=== PATIENT | female | born 1990 | race Caucasian/White ===

== ENCOUNTER 2018-04-09 13:24 | Outpatient (CLI) | payer OTHER, MEDICAID, SELFPAY | END 2018-04-09 14:05 | disposition home or self-care (01) | LOC: OB 04-10 17:01 | PROVIDERS: PCP Physician Assistant Medical | DX: Z34.83 Encounter for supervision of other normal pregnancy, third trimester (principal); Z3A.30 30 weeks gestation of pregnancy; M54.9 Dorsalgia, unspecified | CPT/HCPCS: 59025; G0378; G0379 ==

== ENCOUNTER → 2018-05-04 15:32 | Outpatient (CLI) | payer OTHER, MEDICAID, SELFPAY ==
[2018-05-05 15:11] LABS: Strep Grp B PCR NEG for Grp B Strep
== END ==
PROVIDERS: PCP Physician Assistant Medical
DX: Z34.83 Encounter for supervision of other normal pregnancy, third trimester (principal); Z3A.35 35 weeks gestation of pregnancy
CPT/HCPCS: 87653

== ENCOUNTER 2018-05-24 16:01 | Outpatient (CLI) | payer OTHER, MEDICAID, SELFPAY | END 2018-05-24 17:28 | disposition home or self-care (01) | LOC: OB 10-01 15:21 | PROVIDERS: PCP Physician Assistant Medical; Visit Provider Obstetrics & Gynecology | DX: Z03.71 Encounter for suspected problem with amniotic cavity and membrane ruled out (principal); Z3A.37 37 weeks gestation of pregnancy | CPT/HCPCS: 59025; 84112; G0378; G0379 ==

== ENCOUNTER 2018-05-26 12:25 | Outpatient (CLI) | payer OTHER, MEDICAID, SELFPAY | END 2018-05-26 19:00 | disposition home or self-care (01) | LOC: LABOR 12:34 → OB 05-29 07:36 | PROVIDERS: PCP Physician Assistant Medical; Visit Provider Obstetrics & Gynecology | DX: Z34.83 Encounter for supervision of other normal pregnancy, third trimester (principal); Z3A.37 37 weeks gestation of pregnancy | CPT/HCPCS: 59025; G0378; G0379 ==

== ENCOUNTER 2018-05-26 19:13 | Outpatient (CLI) | payer OTHER, MEDICAID, SELFPAY | END 2018-05-26 19:40 | disposition home or self-care (01) | LOC: LABOR 05-27 08:22 → OB 10-01 15:21 | PROVIDERS: PCP Physician Assistant Medical; Visit Provider Obstetrics & Gynecology | DX: Z34.83 Encounter for supervision of other normal pregnancy, third trimester (principal); Z3A.37 37 weeks gestation of pregnancy | CPT/HCPCS: 59025; G0378; G0379 ==

== ENCOUNTER 2018-06-07 06:59 | Inpatient (IN) | payer OTHER, MEDICAID, SELFPAY ==
[2018-06-07] MEDS: LACTATED RINGERS 1,000 ML 125 ML IV ×2 (07:45→13:44)
[2018-06-07 08:04] LABS: Add Manual Diff / Slide Review NO; Basophils Percent Auto 0.6 % (0-2); Eosinophils Percent Auto 0.7 % (2-4); Hematocrit 32.8 % (36-46); Hemoglobin 11.3 g/dL (12.0-16.0); Lymphocytes Percent Auto 16.8 % (25-40); Mean Corpuscular HGB Conc 34.6 % (30-36); Mean Corpuscular Hemoglobin 28.5 PG (26-34); Mean Corpuscular Volume 82.6 fL (80-100); Monocytes Percent Auto 6.2 % (3-14); Neutrophils Absolute Auto 7400 /uL (3000-5900); Neutrophils Percent Auto 75.7 % (50-75); Platelet Count 192 X10^3/uL (150-400); Red Blood Cell Count 3.97 X10^6/uL (4.0-5.2); Red Cell Distribution Width 13.8 % (11.6-14.8); White Blood Cell Count 9.8 X10^3/uL (4.5-11.0)
[2018-06-07] MEDS: OXYTOCIN PREMIX 30 UNIT/500 ML PLAST..BAG IV (08:05)
[2018-06-07 12:00] VITALS: BP 120/55
[2018-06-07] MEDS: KETOROLAC 30 MG/ML VIAL IV (17:39)
[2018-06-08] MEDS: KETOROLAC 30 MG/ML VIAL IV ×2 (00:01→06:55)
[2018-06-08] MEDS: OXYCODONE/ACETAMINOPHEN 5/325 TABLET 2 TAB PO ×2 (03:11→12:39)
[2018-06-08] MEDS: DOCUSATE 250 MG CAPSULE PO (09:24)
[2018-06-08] MEDS: LANOLIN OINT 7 GM 1 APPLIC TOP (11:41)
[2018-06-08 11:54] VITALS: BP 110/75; PULSE 68; RESP 16; TEMP 36.4
--- NOTE | 2018-08-03 12:27 | PM.OBPRVD ---
Delivery date: 06/[birth year] Intrapartal events: None Induction method: per pitocin protocol Delivery augmentation: rupture of membranes Delivery monitor: external FHT and external uterine Route of delivery: Episiotomy description: None Laceration description: None Estimated blood loss (mL): 400 Anesthesia type: None Complications: None Narrative: The patient was complete and pushed for 11 min. At 4:40 p.m., a live female infant delivered spontaneously over an intact perineum. The remainder of the body delivered without difficulty and was placed on mom's abdomen. The cord was double clamped and cut. Cord bloods were obtained. The placenta delivered intact with a 3 vessel cord at 4:45 p.m.. Pitocin was given in the IV fluids. The fundus was massaged to firm. No lacerations were observed. Apgars 8 at 1 min and 9 at 5 min. Weight 8 lb 5.83 oz. . No analgesia. Mom and infant stable to recovery. Plan for aftercare: To routine care
== END 2018-06-08 13:37 | disposition home or self-care (01) | DRG 560 ==
PROVIDERS: Admitting Provider Obstetrics & Gynecology; PCP Physician Assistant Medical; Visit Provider Obstetrics & Gynecology
DX: O80 Encounter for full-term uncomplicated delivery (principal); Z37.0 Single live birth; Z3A.39 39 weeks gestation of pregnancy
CPT/HCPCS: 59050; 59409; 85025; 86900; 86901; G0379; J1885; J2590

== ENCOUNTER 2019-06-11 12:42 | Emergency (ER) | payer OTHER, MEDICAID, SELFPAY ==
[2019-06-11 13:15] VITALS: BP 123/79; PULSE 71; RESP 15; TEMP 36.1; O2SAT 96; BMI 28.3
--- NOTE | 2019-06-11 14:10 | ED_ITS ---
HPI - Female Genitourinary <Laney Posey PA-C - Last Filed: 06/11/19 17:02> General Chief complaint: Urogenital-Female Stated complaint: bladder prolapse/vomiting x1 year Time Seen by Provider: 06/11/19 14:10 Source: patient Mode of arrival: Ambulatory Limitations: no limitations History of Present Illness HPI Narrative: Patient comes to ED secondary to ?bladder prolapse? with pelvic p ain. States she was at Urology earlier today but not examined and states ?I need some answers?. Records have been requested from that visit. She was seen by her PCP and diagnosed with stage II/3 bladder prolapse which prompted the referral. She states that 1 year ago, she had a traumatic vaginal delivery on her 3rd . She had a tail bone fracture and felt to probably have some soft tissue damage. She states that since then she notice that she can go a very long time without urinating. She states that her vaginal introitus seems loose, and she will have intermittent numbness when sitting on the toilet. She states she has perianal area itching and has intermittent loose stools/diarrhea for at least a couple of months. She states that she has been back at work for the last few months and standing on her feet all day she can get low back pain and a bulging sensation during which she can have urgency and urinary frequency along with pain. She states that she passed a few blood clots yesterday, menses has not started again since . She denies any possibility of as her has had vasectomy and been tested. She states that the pain is constant, worse when on her feet, better when sitting. She states that she does have a prescription for Flexeril which seems to help pain but can make her sleepy. She denies any acute changes in symptoms today. No new fever. No vaginal discharge or STD concerns. Denies Abdominal pain or other new symptoms on systems review today. She denies any possibility of . has had vasectomy and post-test Related Data Previous Rx's Medication Instructions Recorded acyclovir 400 mg PO BID #90 tab 11/15/16 norgestimate-ethinyl estradiol 1 tab PO QDAY #3 pac 11/15/16 [Ortho-Cyclen (28)] sertraline [Zoloft] 25 mg PO QDAY #30 tab 07/31/17 ondansetron [Zofran ODT] 4 mg SUBLINGUAL Q6HP PRN #20 odt 10/25/17 nitrofurantoin monohyd/m-cryst 100 mg PO BID #10 cap 12/04/17 [Macrobid] breast pump #1 each 04/19/18 oxycodone-acetaminophen [Percocet] 1 tab PO Q4-6H PRN #20 tab 06/08/18 Allergies Allergy/AdvReac Type Severity Reaction Status Date / Time No Known Drug Allergies Allergy Verified 06/11/19 13:15 Review of Systems <Laney Posey PA-C - Last Filed: 06/11/19 17:02> Review of Systems ROS Unobtainable: All systems reviewed & are unremarkable except as noted in HPI and below PFSH <Laney Posey PA-C - Last Filed: 06/11/19 17:02> Medical History (Updated 06/11/19 @ 14:48 by Laney Posey PA-C) Herpes genitalis in women (Chronic) perineal pain (Inactive) Surgical History (Updated 06/11/19 @ 14:35 by Laney Posey PA-C) No history of previous surgery (Acute) Social History (Updated 06/11/19 @ 14:35 by Laney Posey PA-C) Smoking Status: Former smoker Social History (Updated 06/11/19 @ 14:35 by Laney Posey PA-C) Smoking Status: Former smoker Exam <Laney Posey PA-C - Last Filed: 06/11/19 17:02> Narrative Exam Narrative: GENERAL APPEARANCE: Patient sitting comfortably, in no distress. PVR 57 HEENT: PERRL, EOMI, no scleral icterus NECK: Supple LUNGS: Clear to auscultation bilaterally. HEART: Rate and rhythm regular, normal S1 and S2, no S3 or S4. ABDOMEN: Soft, mild suprapubic tenderness, nondistended, bowel sounds present x 4 quadrants, no masses palpable, no hepatosplenomegaly. No CVAT EXTREMITIES: No edema, no cyanosis DERMATOLOGIC: No jaundice or exanthem NEUROLOGIC: Alert and oriented with normal speech and coordination : Normal external genitalia, moderate visible and palpable bladder prolapse with Valsalva, no vaginal or rectal prolapse visible. No discharge, lesions or erythema. No palpable masses or tenderness. Initial Vital Signs Initial Vital Signs: Vital Signs Temperature 97.0 F L 06/11/19 13:15 Pulse Rate 71 06/11/19 13:15 Respiratory Rate 15 06/11/19 13:15 Blood Pressure 123/79 06/11/19 13:15 Pulse Oximetry 96 06/11/19 13:15 <Chris Douglas DO - Last Filed: 06/12/19 07:19> Initial Vital Signs Initial Vital Signs: Vital Signs Temperature 97.0 F L 06/11/19 13:15 Pulse Rate 71 06/11/19 13:15 Respiratory Rate 15 06/11/19 13:15 Blood Pressure 123/79 06/11/19 13:15 Pulse Oximetry 96 06/11/19 13:15 Course <Laney Posey PA-C - Last Filed: 06/11/19 17:02> Course Additional Information: Symptoms not acutely or emergently changed however are causing interference with work and daily activities. No evidence of acute UTI. She will schedule follow-up with Dr. Casillas who attended her last delivery MELISSA and agrees to return to ED if acutely worsening symptoms in the interim. Vital Signs Vital signs: Vital Signs - 8 hr 06/11/19 13:15 Temperature 97.0 F L Pulse Rate 71 Respiratory Rate 15 Blood Pressure 123/79 Pulse Oximetry 96 <DO Yeni Rhodes Last Filed: 06/12/19 07:19> Vital Signs Vital signs: Vital Signs - 8 hr 06/11/19 13:15 Temperature 97.0 F L Pulse Rate 71 Respiratory Rate 15 Blood Pressure 123/79 Pulse Oximetry 96 MDM - Female Genitourinary <Laney Posey PA-C - Last Filed: 06/11/19 17:02> Lab Data Attestation: I reviewed the patient's lab results. Labs: Point of Care Testing Test Results Negative Urine Dip Bedside Urine Glucose Negative Bedside Urine Bilirubin - Negative Bedside Urine Ketone - Negative Urine Specific [place] 1.010 Bedside Urine Occult Blood - Negative Bedside Urine pH 7.0 Bedside Urine Protein - Negative Bedside Urine Urobilinogen - Negative Bedside Urine Nitrite - Negative Bedside Urine Leukocytes - Negative Esterase <DO Yeni Rhodes Last Filed: 06/12/19 07:19> Lab Data Labs: Point of Care Testing Test Results Negative Urine Dip Bedside Urine Glucose Negative Bedside Urine Bilirubin - Negative Bedside Urine Ketone - Negative Urine Specific [place] 1.010 Bedside Urine Occult Blood - Negative Bedside Urine pH 7.0 Bedside Urine Protein - Negative Bedside Urine Urobilinogen - Negative Bedside Urine Nitrite - Negative Bedside Urine Leukocytes - Negative Esterase Discharge Plan Departure Patient Disposition: Home Clinical Impression: Bladder prolapse, female, acquired, Chronic female pelvic pain Discharge Date/Time: 06/11/19 14:59 Instructions: Cystocele/Rectocele Activity Restrictions/Additional Instructions: I agree with your PA that you do have bladder prolapse, but given the symptoms you describe since your last baby was delivered, I do think that there are more to your symptoms than this, perhaps some nerve and muscular damage that is also contributing. You do not appear to have a bladder infection today. Please set up an appointment to see Dr. Casillas for further evaluation as soon as possible, and she may have some good ideas to treat you, or can refer you onto a subspecialist if needed. I think since your Flexeril does help you, it is worthwhile to try taking this in smaller doses 1st if it does not make you to sleepy. Try taking 1/4-1/2 tab tonight and see if that is helpful, as many patients are able to take that dose without getting sleepy and have good effect on the muscles. You can talk with Dr. Casillas about your progress on that and whether to add any additional medicines, i.e. bladder medicines, when you see her. Please return if you have any acutely worsening symptoms in the interim Prescriptions: No Action norgestimate-ethinyl estradiol [Ortho-Cyclen (28)] 1 EACH tablet 1 tab PO QDAY Qty: 3 RF: 4 acyclovir 400 MG tablet 400 mg PO BID Qty: 90 RF: 2 sertraline [Zoloft] 25 MG tablet 25 mg PO QDAY Qty: 30 RF: 3 ondansetron [Zofran ODT] 4 MG tablet,disintegrating 4 mg Sublingual Q6HP PRNQty: 20 RF: 1 nitrofurantoin monohyd/m-cryst [Macrobid] 100 MG capsule 100 mg PO BID Qty: 10 RF: 0 (DME) breast pump [Pump In Style Advanced] device See Dose Instructions .ROUTE .MEDSUPPLY Qty: 1 RF: 0 oxycodone-acetaminophen [Percocet] 5-325 mg tablet 1 tab PO Q4-6H PRN (Reason: pain) Qty: 20 RF: 0 Referrals: Belinda Hutchinson PA-C [Primary Care Provider] - Sirena Casillas MD [Physician] -
--- NOTE | 2019-06-11 14:19 | PC.NURSE ---
Pt has had bladder prolapse s/p having baby approx 1 year ago. Pt saw urology today for same
== END 2019-06-11 14:59 | disposition home or self-care (01) ==
PROVIDERS: Emergency Provider Internal Medicine; PCP Physician Assistant Medical
DX: N81.10 Cystocele, unspecified (principal); R10.2 Pelvic and perineal pain; G89.29 Other chronic pain
CPT/HCPCS: 81003; 81025; 99282; 99283

== ENCOUNTER → 2019-06-25 12:55 | Outpatient (CLI) | payer OTHER, MEDICAID, SELFPAY ==
--- NOTE | 2019-06-25 | DI.CT.S_ITS ---
PROCEDURE: CT ABDOMEN PELVIS WO/W CON INDICATIONS: Personal history of other diseases of urinary system TECHNIQUE: Optional 5 mm thick noncontrast images acquired from the diaphragm to the symphysis pubis. After the administration of intravenous contrast, 5 mm thick images acquired from the diaphragm to the symphysis pubis after a 10-minute delay. 2 mm thick coronal and sagittal reformats were then performed of the kidneys and ureters. For radiation dose reduction, the following was used: automated exposure control, adjustment of mA and/or kV according to patient size. COMPARISON: None. FINDINGS: Image quality: Excellent. Lung bases: Lung bases are clear. Heart size is normal. Urinary system: Both kidneys are normal in size, without hydronephrosis. Punctate density seen in the left kidney on image 26 series 2 which is indeterminate there elsewhere, no urolithiasis. No perinephric fat stranding. There is normal bilateral renal enhancement. Renal calyces appear normal in morphology when filled with contrast. Opacified portions of both ureters demonstrate normal caliber. Bladder wall thickness is normal. No calcified bladder stones. Other solid organs: Liver is normal in size and enhancement. Gallbladder unremarkable. Biliary system is non dilated. Pancreas enhances normally. Spleen is normal in size and enhancement. No adrenal nodules. Peritoneum and bowel: Bowel loops demonstrate normal wall thickness and caliber. No free fluid or air. The appendix is within normal limits Nodes and vessels: No retroperitoneal or mesenteric adenopathy by size criteria. Aorta and inferior vena cava are normal in size. Abdominal wall: No ventral hernias. Pelvis: No pathologic free pelvic fluid. No inguinal hernias or adenopathy. Bones: No suspicious bony lesions. No vertebral body compression fractures. IMPRESSION: Questionable punctate left renal calculus, indeterminate. Elsewhere, no urolithiasis nor evidence of urinary obstruction. Unremarkable CT appearance of the bladder. Dictated by: Chuckie Cantrell M.D. on 06/25/2019 at 15:14 Approved by: Chuckie Cantrell M.D. on 06/25/2019 at 15:21
== END ==
PROVIDERS: PCP Physician Assistant Medical; Visit Provider Urology
DX: R10.2 Pelvic and perineal pain (principal); R33.9 Retention of urine, unspecified; Z87.448 Personal history of other diseases of urinary system
CPT/HCPCS: 74178; Q9967